=== PATIENT | male | born 1995 | race Caucasian/White ===

== ENCOUNTER 2016-06-28 12:41 | Emergency (ER) | payer MEDICAID, OTHER ==
[~2016-06-28] VITALS: Ht 177.8 cm; Wt 70.7 kg
[2016-06-28 12:55] VITALS: BP 124/71; PULSE 61; RESP 18; TEMP 98.2; O2SAT 100
--- NOTE | 2016-06-28 13:01 | PD ---
HPI . right shoulder/rib pain x 3 days Chief Complaint: Fall Time Seen by Provider: 13:01 Travel History International Travel<30 days: No Contact w/Intl Traveler<30days: No Traveled to known affect area: No History of Present Illness HPI 21-year-old male with history of seizure secondary poisoning and now being weaned off of his seizure medications here with complaints of right shoulder and rib pain for about 3 days. Patient was walking and slipped on a Gatorade bottle and fell hitting his right shoulder area. He is now complaining of pain in his right shoulder, ribs and elbow. He does have a small abrasion to the right elbow without any other areas of bruising. He has full range of motion in all of his joints, but decided to come to the emergency department for evaluation due to pain with movement. He denies any head injury or loss of consciousness. He denies any seizures at the time. [facility] Past Medical History Medical History: Denies Significant Hx Seizures: Yes (after poisoning) Social History Tobacco Use: No Allergies-Medications (Allergen,Severity, Reaction): Coded Allergies: No Known Allergies (Unverified , 06/28/16) Reported Meds & Prescriptions Reported Meds & Active Scripts Active Reported Levetiracetam 250 Mg Tab 250 Mg PO BID Review of Systems General / Constitutional: No: Fever Eyes: No: Visual changes HENT: No: Headaches Cardiovascular: No: Chest Pain or Discomfort Respiratory: No: Shortness of Breath Gastrointestinal: No: Abdominal Pain Genitourinary: No: Dysuria Musculoskeletal: Positive: Pain (right shoulder/rib) Skin: No Rash Neurologic: No: Weakness Psychiatric: No: Depression Endocrine: No: Polydipsia Hematologic/Lymphatic: No: Easy Bruising Physical Exam Narrative GENERAL: AAO x 3, no acute distress, Well-nourished, well-developed patient. SKIN: Warm and dry. No visible rashes or bruising. small abrasion to posterior elbow over olecranon process. healing well. no evidence of cellulitis HEAD: Normocephalic and atraumatic. EYES: No scleral icterus. No injection or drainage. ENT: No nasal drainage noted. Airway patent. NECK: Supple, trachea midline. No JVD. CARDIOVASCULAR: Regular rate and rhythm without murmurs, gallops, or rubs. RESPIRATORY: Breath sounds equal bilaterally. No accessory muscle use. No rhonchi or rales. GASTROINTESTINAL: Abdomen soft, non-tender, nondistended. EXTREMITIES: No cyanosis or edema. FULL ROM of all joints.Negative Rotator cuff tests. systems admin strength normal b/l BACK: Nontender without obvious deformity. No CVA tenderness. PSYCH: AAO x 3, normal affect. Data Data Last Documented VS Vital Signs Date Time Temp Pulse Resp B/P Pulse Ox O2 Delivery O2 Flow Rate FiO2 06/28/16 12:55 98.2 61 18 124/71 100 MDM Medical Decision Making Medical Screen Exam Complete: Yes Emergency Medical Condition: Yes Medical Record Reviewed: Yes Differential Diagnosis rib contusion, rib fracture, less likely AC joint separation, less likely shoulder dislocation Narrative Course 21-year-old male with history of seizure secondary poisoning and now being weaned off of his seizure medications here with complaints of right shoulder and rib pain for about 3 days. Patient was walking and slipped on a Gatorade bottle and fell hitting his right shoulder area. He is now complaining of pain in his right shoulder, ribs and elbow. He does have a small abrasion to the right elbow without any other areas of bruising. He has full range of motion in all of his joints, but decided to come to the emergency department for evaluation. He denies any head injury or loss of consciousness. He denies any seizures at the time. Patient seen and examined. I do not see any abn on exam other than a small elbow abrasion that is healing well. No imaging indicated as all joints move freely without pain. Recommend Ibuprofen OTC and ice to area. Discussed rest. Patient verbalized understanding of instructions, questions were answered, and thanked me for their care. I advised them if their condition worsens, please return to the nearest emergency room for further care. Diagnosis Primary Impression: Right shoulder pain Qualified Code: M25.511 - Acute pain of right shoulder Additional Impressions: Abrasion of right elbow Qualified Code: S50.311A - Abrasion of right elbow, initial encounter Rib pain on right side Patient Instructions: Contusion in Adults (ED), General Instructions Additional Instructions: Please return to emergency department if your symptoms return or worsen. Follow up with your primary care provider. Rest the affected area as much as possible. Ice this area for 15-20 minutes at a time. You can do this every hour or as much as tolerated. Use ibuprofen as needed for pain and inflammation. Med/Other Pt SpecificInfo: Prescription(s) given Disposition: 01 DISCHARGE HOME Condition: Stable Janice Renee Jun 28, 2016 13:01
[2016-06-28] MEDS ORDERED: LEVE250T5 PO (13:02)
== END 2016-06-28 13:23 | disposition home or self-care (01) ==
LOC: PHED 12:41
DX: M25.511 Pain in right shoulder (principal); S50.311A Abrasion of right elbow, initial encounter; R07.81 Pleurodynia; W18.31XA Fall on same level due to stepping on an object, initial encounter; Y93.01 Activity, walking, marching and hiking; Y92.9 Unspecified place or not applicable; R56.9 Unspecified convulsions
CPT/HCPCS: 99283

== ENCOUNTER 2017-09-17 15:50 | Emergency (ER) | payer SELFPAY ==
[~2017-09-17 15:50] MED LIST: LEVE250T5 PO
[2017-09-17 15:58] VITALS: BP 131/72; PULSE 106; RESP 20; TEMP 97.5; O2SAT 97
[2017-09-17] MEDS ORDERED: TETANUS/DIPHTHERIA TOXOID ADULT 0.5 ML VIAL IM ONE (16:45)
--- NOTE | 2017-09-17 16:53 | PD ---
HPI Chief Complaint: Laceration/Skin Injury Time Seen by Provider: 16:21 Travel History International Travel<30 days: No Contact w/Intl Traveler<30days: No Traveled to known affect area: No History of Present Illness HPI 22-year-old male here with right hand pain and multiple abrasions after he slipped and fell onto an oyster bed. He reports he was fishing on some rocks when he fell backwards injuring the right hand. Injury occurred prior to arrival. He has pain localized to the right hand primarily the thumb. No decreased range of motion or altered sensation. No head injury or loss of consciousness. Reports moderate aching pain in the hand. Aggravated by range of motion and slightly relieved with rest. Tetanus immunization is not up-to- date. [facility] Past Medical History Medical History: Denies Significant Hx Seizures: Yes (after poisoning) Tetanus Vaccination: Unknown Past Surgical History Surgical History: No Previous Surgery Social History Alcohol Use: Yes Tobacco Use: No Substance Use: Yes (MARIJUANA) Allergies-Medications (Allergen,Severity, Reaction): Coded Allergies: No Known Allergies (Unverified , 06/28/16) Reported Meds & Prescriptions Reported Meds & Active Scripts Active No Active Prescriptions or Reported Medications Review of Systems Except as stated in HPI: all other systems reviewed are Neg General / Constitutional: No: Fever Eyes: No: Visual changes HENT: No: Headaches Cardiovascular: No: Chest Pain or Discomfort Respiratory: No: Shortness of Breath Gastrointestinal: No: Abdominal Pain Genitourinary: No: Dysuria Physical Exam Narrative GENERAL: Alert and well-appearing 22-year-old male SKIN: Multiple abrasions and superficial lacerations to the right hand. HEAD: Normocephalic. Atraumatic EYES: No injection or drainage. NECK: Supple, trachea midline. No midline spine tenderness CARDIOVASCULAR: Regular rate and rhythm. No chest wall tenderness RESPIRATORY: Breath sounds equal bilaterally. No accessory muscle use. GASTROINTESTINAL: Abdomen soft, non-tender, nondistended. MUSCULOSKELETAL: No cyanosis, or edema. Right hand: Multiple superficial abrasions and lacerations to the palm of the hand. Has full range of motion and normal sensation in all fingers. Tenderness over the thumb. Brisk cap refill. BACK: Nontender without obvious deformity. No CVA tenderness. Data Data Last Documented VS Vital Signs Date Time Temp Pulse Resp B/P (MAP) Pulse Ox O2 Delivery O2 Flow Rate FiO2 09/17/17 15:58 97.5 106 20 131/72 (91) 97 Orders Orders Hand, Complete ([id number]) (09/17/17 ) Tetanus/Diphtheria Tox Adult (Tetanus/Di (09/17/17 16:45) MDM Medical Decision Making Medical Screen Exam Complete: Yes Emergency Medical Condition: Yes Differential Diagnosis Fracture, contusion, laceration, retained foreign body Narrative Course 22-year-old male here with multiple superficial lacerations caused by oyster bed. Tetanus immunization updated. X-ray obtained to rule out fracture and foreign body the right hand. Wounds were copiously irrigated and dressed with sterile dressings. Due to salt water exposure and injury by contaminated oyster beds he will be put on prophylactic antibiotics. Strict return precautions were discussed. Patient is to follow-up for recheck in 1-2 days. Diagnosis Primary Impression: Abrasion of right hand Qualified Codes: S60.511A - Abrasion of right hand, initial encounter Additional Impression: Contusion, thumb Qualified Codes: S60.011A - Contusion of right thumb without damage to nail, initial encounter Referrals: Primary Care Physician Additional Instructions: Antibiotics as directed. Ibuprofen 800 mg every 6 hours as needed for pain. Cleanse the area daily with soap and water. Cover with a clean dry dressing Follow-up with your primary doctor for recheck in 1-2 days. Return to emergency department if he develops signs or symptoms of infection as we discussed Scripts Mupirocin Topical (Mupirocin Topical) 2 % Oint 1 APPLIC TOPICAL BID for Mgmt Bacterial Infection, #1 TUBE 0 Refills Prov: Freida Oliveros 09/17/17 Doxycycline Hyclate (Doxycycline Hyclate) 100 Mg Cap 100 MG PO BID for Infection for 7 Days, #14 CAP 0 Refills Prov: Freida Oliveros 09/17/17 Disposition: 01 DISCHARGE HOME Condition: Stable Freida Oliveros Sep 17, 2017 16:53
--- NOTE | 2017-09-17 18:44 | RADRPT ---
EXAM DATE: 09/17/2017 6:35 PM EDT AGE/SEX: 22 years / Male INDICATIONS: Right hand pain after slipping on an oyster bar today. CLINICAL DATA: This is the patient's initial encounter. Patient reports that signs and symptoms have been present for 1 day and indicates a pain score of 4/10. MEDICAL/SURGICAL HISTORY: None. None. COMPARISON: No prior exams available for comparison. FINDINGS: Bony structures are intact and in normal alignment. Osseous density is normal. Soft tissues are unre markable. No radiopaque foreign bodies seen. CONCLUSION: Negative examination. Electronically signed by: Juan Manuel Simental MD 09/17/2017 6:43 PM EDT
[2017-09-17] MEDS ORDERED: DOXY100C PO (18:46)
[2017-09-17] MEDS ORDERED: MUPI2OIN TOPICAL (18:48)
== END 2017-09-17 18:57 | disposition home or self-care (01) ==
LOC: PHEFT 15:50
DX: S61.411A Laceration without foreign body of right hand, initial encounter (principal); S60.011A Contusion of right thumb without damage to nail, initial encounter; S60.511A Abrasion of right hand, initial encounter; W01.118A Fall on same level from slipping, tripping and stumbling with subsequent striking against other sharp object, initial encounter; Y92.89 Other specified places as the place of occurrence of the external cause; Z23 Encounter for immunization
CPT/HCPCS: 73130; 90471; 90714